=== PATIENT | female | born 1980 | race Caucasian/White ===

== ENCOUNTER 2022-05-09 15:37 | Emergency (ER) | payer OTHER, SELFPAY ==
[2022-05-09 15:44] VITALS: BP 126/73; PULSE 93; RESP 16; TEMP 36.6; O2SAT 100; BMI 22.4
--- NOTE | 2022-05-09 16:54 | W.ED.RECABL ---
HPI - Recheck/Abnormal Lab/Rx General: Chief Complaint: Recheck/Abnormal Lab/Rx Stated Complaint: Abnormal Labs Time Seen by Provider: 05/09/22 16:32 Source: patient Mode of arrival: ambulatory History of Present Illness: 41-year-old female presents emergency room at the direction of her ASSESSMENT EXPERT. She had she is here because her ferritin level. She has several pages of lab work she recently had an elevated beta-hCG but it is already going down she was aware that she has a chronically low hemoglobin and has hemoglobins of 7 and 7 2 with an MCV of 62 on lab work that she is had done over the last week. One is dated from 829. She has not had any lightheadedness dizziness she has irregular prolonged. She has been known to have chronic anemia issues in the past. No recent bleeding she is not on any anticoagulants. She denies any lightheadedness dizziness or rapid heart rate. She has been working her regular job without any difficulty. MD complaint: abnormal lab Initial visit (ago): week(s) (1) Symptoms since prior visit: no new symptoms Context: called for abnormal lab result Associated symptoms: none Review of Systems Const: Denies: fever(s), chills, body aches, change in appetite, fatigue or malaise ENMT: Denies: throat pain, ear or mastoid pain, nasal discharge or nasal congestion Card: Denies: chest pain, edema, dyspnea on exertion or orthopnea Resp: Denies: dyspnea, productive cough or non-productive cough GI: Denies: abdominal pain, nausea, vomiting, hematemesis, coffee ground emesis, diarrhea, constipation, bloating, hematochezia or melena : Denies: flank pain, difficulty voiding, dysuria, urinary frequency or urinary urgency Skin/Breast: Denies: rash or pruritus PFS ED PFSH: Medical History (Updated 05/09/22 @ 17:14 by Sony Garner DO) Iron deficiency anemia Social History Smoking and tobacco status: current every day smoker Physical Exam Const: GENERAL APPEARANCE: cooperative and comfortable ORIENTATION/CONSCIOUSNESS: Yes awake, Yes oriented to person, Yes oriented to place and Yes oriented to time HENMT: COMMON NORMALS: normocephalic, atraumatic, hearing grossly normal bilaterally, external ears normal, EAC's normal, TM's normal bilaterally and Normal nasal mucous membranes and turbinates present HEAD & SCALP: normocephalic and atraumatic NOSE: Normal nasal mucous membranes and turbinates present EXTERNAL EAR: Yes external ears normal EXTERNAL AUDITORY CANAL: EAC's normal TYMPANIC MEMBRANE: TM's normal bilaterally Eye: COMMON NORMALS: Equal, round and reactive pupils present, EOMs intact bilaterally, conjunctivae normal and no scleral icterus CONJUNCTIVA: Yes conjunctivae normal PUPIL: Yes Equal, round and reactive pupils present Neck/C-Spine: COMMON NORMALS: full ROM, no lymphadenopathy, supple and no JVD Lymph: LYMPHATIC: no lymphadenopathy noted and no lymphedema noted Resp: COMMON NORMALS: normal respiratory effort, No retractions, No use of accessory muscles and clear to auscultation bilaterally AUSCULTATION: clear to auscultation bilaterally Cardio: COMMON NORMALS: no JVD, regular rate, regular rhythm and No murmurs present (Cardio) RATE: regular rate RHYTHM: regular rhythm GI: COMMON NORMALS: Soft to palpation and No hepatosplenomegaly present AUSCULTATION: Yes normoactive bowel sounds PALPATION: Yes Soft to palpation, No Tenderness to palpation present (GI), No Guarding due to palpation present (GI) and Yes No hepatosplenomegaly present Extremity: COMMON NORMALS: normal to inspection, capillary refill normal, no clubbing, cyanosis or edema, no calf tenderness and no pedal edema Neuro: SENSORIUM/ORIENTATION: Yes oriented to person, Yes oriented to place and Yes oriented to time Skin: COMMON NORMALS: no rashes or lesions noted GENERAL SKIN EXAM: no rashes or lesions noted Course Vital Signs: Vital signs: Vital Signs Temperature 97.9 F 05/09/22 15:44 Pulse Rate 93 05/09/22 15:44 Respiratory Rate 16 05/09/22 15:44 Blood Pressure 126/73 05/09/22 15:44 Pulse Oximetry 100 05/09/22 15:44 Oxygen Delivery Me thod 05/09/22 15:44 MDM - Recheck/Abnormal Lab/Rx Medical Decision Making Iron deficiency anemia based on the CBC panel that she showed me from the outpatient lab work that was done. Hemoglobin was 7 then went up to 7 to her MCV is in the low 60s. Given her MCV and her lack of symptoms this is obviously a chronic issue. She is asymptomatic this time is had no recent significant blood loss. 1 could argue that more appropriate treatment would be iron infusion. Discussed options with her I do not think she needs to be emergently transfused at this time. She would prefer not to have a blood transfusion. We discussed iron infusion as an option she feels that sounds more preferable. We will set her up to see hematology oncology they can complete her anemia work-up and initiate her iron infusion if that is ultimately what she decides to do. We will start her on p.o. iron for now. Medical Records I reviewed the patient's medical records. Lab Data I reviewed the patient's lab results. Discharge Plan Discharge Patient Disposition: Home Clinical Impression: Iron deficiency anemia Condition: Stable Prescriptions: New ferrous sulfate 324 mg (65 mg iron) tablet,delayed release (DR/EC) 324 mg PO BID Qty: 60 0RF No Action prednisone 20 mg tablet 40 mg PO DAILY 5 Days Qty: 10 0RF amoxicillin-pot clavulanate 875-125 mg tablet 1 tab PO BID Qty: 14 0RF Discharge Orders: Discharge ED (Routine); Ordered 05/09/22 Ordered By: Sony Garner Discharge Diet: Usual diet Discharge Activity: Resume usual activity Patient Instructions: Opioid Safety Activity Restrictions/Additional Instructions: Case managment will make arrangments for you to have an appointment with hematology. Coding Level of Care Code ED Cooling System Operator for Sandy Espinoza Exam Comprehensive
--- NOTE | 2022-05-11 10:24 | DCPLANNER ---
Addendum entered by Kari Diaz 06/01/22 12:39: Patient had a follow up appointment scheduled with hematology - patient did attend appointment. Addendum entered by Kari Diaz 05/26/22 08:48: Patient has a follow up appointment scheduled for Tuesday May 31, 2022 11:[address] appointment at 1:[address] Brooks. Clinic will call patient with appointment information. Original Note: disability case manager had message to schedule a follow up appointment for patient with hematology. disability case manager called Negin Burks, measurement coordinator at [facility]. disability case manager was told that patients information will be printed and reviewed. Clinic will call patient with appointment information.
== END 2022-05-09 17:16 | disposition home or self-care (01) ==
PROVIDERS: Emergency Provider Family Medicine
DX: D50.9 Iron deficiency anemia, unspecified (principal); F17.210 Nicotine dependence, cigarettes, uncomplicated
CPT/HCPCS: 99283

== ENCOUNTER 2022-05-31 11:08 | Oncology outpatient (recurring) (ONCR) | payer OTHER, SELFPAY ==
[2022-05-31 11:54] LABS: Basophils # 0.1 10^3/uL (0.0-0.1); Basophils % 0.8 %; Eosinophils # 0.1 10^3/uL (0.0-0.8); Eosinophils % 1.8 %; Hematocrit 38.5 % (37.0-47.0); Hemoglobin 10.3 g/dL (11.5-15.3); Lymphocytes # 1.9 10^3/uL (0.8-4.8); Lymphocytes % 26.8 %; Mean Corpuscular HGB Conc 26.8 g/dL (30.0-36.0); Mean Corpuscular Hemoglobin 19.4 pg (28.0-34.0); Mean Corpuscular Volume 72.6 fl (81-99); Mean Platelet Volume 8.7 fL (7.4-10.4); Monocytes # 0.5 10^3/uL (0.2-0.9); Monocytes % 6.8 %; Neutrophils # 4.56 10^3/uL (1.8-7.7); Neutrophils % 63.4 %; Nucleated Red Blood Cells % 0 %; Platelet Count 508 10^3/cmm (130-400); Red Cell Distribution Width 28.6 % (12.1-15.1); White Blood Count 7.2 10^3/uL (4.0-10.0)
[2022-05-31 12:27] LABS: Alanine Aminotransferase 6 U/L (0-33); Albumin Level 3.9 g/dL (3.5-5.2); Alkaline Phosphatase 68 U/L (35-105); Anion Gap 12.7 (5-19); Aspartate Amino Transferase 11 U/L (0-32); Blood Urea Nitrogen 7 mg/dL (6-20); Calcium 9.8 mg/dL (8.5-10.5); Carbon Dioxide 28 mmol/L (22-29); Chloride 105 mmol/L (98-107); Ferritin 55 ng/mL (15-150); Globulin 3.1 g/dL (1.3-4.6); Glomerular Filtration Rate 135.3 mL/min (90-130); Glucose 99 mg/dL (65-115); Iron 24 ug/dL (37-145); Osmolality Calculated 290 mOsm/kg (285-295); Potassium 4.7 mmol/L (3.5-5.1); Sodium 141 mmol/L (136-145); Total Bilirubin 0.2 mg/dL (0.15-1.2); Total Iron Binding Capacity 341 mcg/dl; Unsaturated Iron Binding 317 ug/dL (112-347)
[2022-05-31 12:40] LABS: Vitamin B12 479 pg/mL (232-1245)
== END 2022-06-03 23:59 | disposition home or self-care (01) ==
PROVIDERS: Visit Provider Internal Medicine Hematology & Oncology
DX: D64.9 Anemia, unspecified (principal)
CPT/HCPCS: 36415; 80053; 82607; 82728; 83540; 83550; 85025

== ENCOUNTER → 2022-06-22 16:32 | Outpatient (BNVA) | payer OTHER, SELFPAY | PROVIDERS: Visit Provider Nurse Practitioner Family | DX: R68.89 Other general symptoms and signs (principal); B34.9 Viral infection, unspecified | CPT/HCPCS: 87071; 87400; 87880 ==

== ENCOUNTER → 2022-07-27 11:56 | Outpatient (BNVA) | payer OTHER, SELFPAY | PROVIDERS: Visit Provider Emergency Medicine | DX: R50.9 Fever, unspecified (principal) | CPT/HCPCS: 87880 ==

== ENCOUNTER → 2022-09-21 14:28 | Outpatient (BNVA) | payer OTHER, SELFPAY | PROVIDERS: Visit Provider Nurse Practitioner Family | DX: M51.37 Other intervertebral disc degeneration, lumbosacral region (principal) | CPT/HCPCS: 72100 ==

== ENCOUNTER 2022-09-22 11:41 | Oncology outpatient (recurring) (ONCR) | payer OTHER, SELFPAY ==
[2022-09-22 12:25] LABS: Basophils % 0.3 %; Eosinophils # 0.1 10^3/uL (0.0-0.8); Eosinophils % 0.5 %; Hematocrit 42.6 % (37.0-47.0); Hemoglobin 13.8 g/dL (11.5-15.3); Lymphocytes # 3.1 10^3/uL (0.8-4.8); Lymphocytes % 20.5 %; Mean Corpuscular HGB Conc 32.4 g/dL (30.0-36.0); Mean Corpuscular Hemoglobin 28.2 pg (28.0-34.0); Mean Corpuscular Volume 86.9 fl (81-99); Mean Platelet Volume 9.3 fL (7.4-10.4); Monocytes # 0.9 10^3/uL (0.2-0.9); Monocytes % 5.7 %; Neutrophils # 10.84 10^3/uL (1.8-7.7); Neutrophils % 72.7 %; Nucleated Red Blood Cells % 0 %; Platelet Count 328 10^3/cmm (130-400); Red Cell Distribution Width 13.2 % (12.1-15.1); White Blood Count 14.9 10^3/uL (4.0-10.0)
[2022-09-22 12:40] LABS: Ferritin 59 ng/mL (15-150); Iron 49 ug/dL (37-145); Percent Saturation 20.1 % (20-50); Total Iron Binding Capacity 243 mcg/dl; Unsaturated Iron Binding 194 ug/dL (112-347)
== END 2022-10-04 23:59 | disposition home or self-care (01) ==
PROVIDERS: Visit Provider Internal Medicine Hematology & Oncology
DX: D50.0 Iron deficiency anemia secondary to blood loss (chronic) (principal); N92.1 Excessive and frequent menstruation with irregular cycle; J06.9 Acute upper respiratory infection, unspecified; M54.59 Other low back pain; D72.820 Lymphocytosis (symptomatic); Z79.2 Long term (current) use of antibiotics; Z79.52 Long term (current) use of systemic steroids; Z79.899 Other long term (current) drug therapy
CPT/HCPCS: 36415; 82728; 83540; 83550; 85025

== ENCOUNTER → 2025-04-23 15:46 | Outpatient (BNVA) | payer OTHER, SELFPAY | PROVIDERS: Visit Provider Registered Nurse Neonatal Intensive Care | DX: S69.90XA Unspecified injury of unspecified wrist, hand and finger(s), initial encounter (principal); M79.642 Pain in left hand | CPT/HCPCS: 73130 ==